=== PATIENT | male | born 1970 | race Caucasian/White ===

== ENCOUNTER 2017-03-21 14:09 | Inpatient (IN) | payer OTHER ==
[2017-03-21 15:09] VITALS: BMI 27.4
--- NOTE | 2017-03-21 16:56 | HP ---
CIWA Score - CIWA Score Nausea/Vomitin-Mild Nausea/No Vomiting Muscle Tremors: 4-Moderate,w/Arms Extend Anxiety: 4-Mod. Anxious/Guarded Agitation: 4-Moderately Restless Paroxysmal Sweats: 1-Minimal Palms Moist Orientation: 3-Disoriented Date>2 days Tacttile Disturbances: 0-None Auditory Disturbances: 0-None Visual Disturbances: 0-None Headache: 1-Very Mild CIWA-Ar Total Score: 18 Admission ROS S - HPI Chief Complaint: WITHDRAWAL SX Allergies/Adverse Reactions: Allergies Allergy/AdvReac Type Severity Reaction Status Date / Time No Known Allergies Allergy Verified 03/21/17 15:43 History of Present Illness: 47 YEARS OLD MALE WITH LONG HISTORY OF ALCOHOL NICOTINE DEPENDENCE, DENIES MEDICAL DENIES MENTAL ILLNESS IS ADMITTED TO DETOX Exam Limitations: No Limitations - Ebola screening Have you traveled outside of the country in the last 21 days: No Have you had contact with anyone from an Ebola affected area: No Have you been sick,other than usual withdrawal symptoms: No Do you have a fever: No - Review of Systems Constitutional: Chills, Changes in sleep, Weight Stable EENT: reports: Other (SORE THROAT) Respiratory: reports: Productive cough (GREENISH) Cardiac: reports: No Symptoms Reported GI: reports: Nausea, Poor Fluid Intake, Abdominal cramping : reports: No Symptoms Reported Musculoskeletal: reports: No Symptoms Reported Integumentary: reports: Dryness, Erythema (FACE - SUN BURN), Lesions (MULTIPLE NECK), Pruritus, Rash Neuro: reports: Seizure (2015), Tremors Endocrine: reports: No Symptoms Reported Hematology: reports: No Symptoms Reported Psychiatric: reports: Judgement Intact, Mood/Affect Appropiate Other Systems: Reviewed and Negative Patient History - Patient Medical History Hx Anemia: No Hx Asthma: No Hx Chronic Obstructive Pulmonary Disease (COPD): No Hx Cancer: No Hx Cardiac Disorders: No Hx Congestive Heart Failure: No Hx Hypertension: No Hx Hypercholesterolemia: No Hx Pacemaker: No HX Cerebrovascular Accident: No Hx Seizures: No Hx Dementia: No Hx Diabetes: No Hx Gastrointestinal Disorders: No Hx Liver Disease: No Hx Genitourinary Disorders: No Hx Sexually Transmitted Disorders: No Hx Renal Disease (ESRD): No Hx Thyroid Disease: No Hx Human Immunodeficiency Virus (HIV): No Hx Hepatitis C: No Hx Depression: No Hx Suicide Attempt: No Hx Bipolar Disorder: No Hx Schizophrenia: No - Patient Surgical History Past Surgical History: Yes Hx Neurologic Surgery: No Hx Cataract Extraction: No Hx Cardiac Surgery: No Hx Lung Surgery: No Hx Breast Surgery: No Hx Breast Biopsy: No Hx Abdominal Surgery: No Hx Appendectomy: No Hx Cholecystectomy: No Hx Genitourinary Surgery: No Hx Orthopedic Surgery: Yes (rt foot toes amputated 2012 [ butler bite ]) Anesthesia Reaction: No - PPD History Previous Implant?: Yes Documented Results: Negative w/proof Implanted On Prior [facility] Admission?: Yes Date: 07/20/15 PPD to be Administered?: Yes - Smoking Cessation Smoking history: Current every day smoker Have you smoked in the past 12 months: Yes Aproximately how many cigarettes per day: 15 Cigars Per Day: 0 Hx Chewing Tobacco Use: No Initiated information on smoking cessation: Yes 'Breaking Loose' booklet given: 03/21/17 - Substance & Tx. History Hx Alcohol Use: Yes Hx Substance Use: No Substance Use Type: Alcohol Hx Substance Use Treatment: Yes (07/17-07/21/15 [facility]) - Substances Abused Alcohol Route: Oral Frequency: Daily Amount used: vodka(1 liter)/beer(4-5 cans 24 oz cans) Age of first use: 12 Date of Last Use: 03/20/17 Family Disease History - Family Disease History Family Disease History: CA: Sister (), Other: Father (), Mother (), Sister Admission Physical Exam BHS - Vital Signs Vital Signs: Vital Signs - 24 hr 03/21/17 15:06 Temperature 97.1 F L Pulse Rate 95 H Respiratory 20 Rate Blood Pressure 150/96 - Physical General Appearance: Yes: Nourished, Appropriately Dressed, Moderate Distress, Tremorous, Irritable, Sweating, Anxious HEENTM: Yes: Hearing grossly Normal, Normal ENT Inspection, Normocephalic, Normal Voice, Lessions (CHEEKS MULTIPLE SKIN ABRASION) Respiratory: Yes: Chest Non-Tender, No Respiratory Distress, No Accessory Muscle Use, Hyperresonant Neck: Yes: Supple, Trachea in good position, Other (MULTIPLE RASHES) Breast: Yes: Breasts Symetrical Cardiology: Yes: Regular Rhythm, S1, S2, Tachycardia Abdominal: Yes: Non Tender, Soft Genitourinary: Yes: Within Normal Limits Back: Yes: Normal Inspection Musculoskeletal: Yes: full range of Motion, Gait Steady Extremities: Yes: Normal Range of Motion, Non-Tender, Tremors, Erythema ( MULTIPLE DRY SKIN SUN BURN) Neurological: Yes: Alert, Motor Strength 5/5, Normal Mood/Affect, Normal Response Integumentary: Yes: Warm, Erythema (RASHES + SUN BURN SUPERFICIAL) Lymphatic: Yes: Within Normal Limits - Diagnostic (1) Nicotine dependence Current Visit: Yes Status: Acute Qualifiers: Nicotine product type: cigarettes Substance use status: in withdrawal Qualified Code(s): F17.213 - Nicotine dependence, cigarettes, with withdrawal (2) Alcohol dependence with uncomplicated withdrawal Current Visit: Yes Status: Acute (3) Dry skin dermatitis Current Visit: Yes Status: Acute (4) Acneiform rash Current Visit: Yes Status: Acute Comment: BACITRACIN OINTMENT (5) Blister Current Visit: Yes Status: Acute Comment: FEET + ABRASION Cleared for Admission S - Detox or Rehab [facility] Level of Care: Medically Managed Detox Regimen/Protocol: Librium S Breath Alcohol Content Breath Alcohol Content: 0 Urine Drug Screen - Results Drug Screen Negative: No Urine Drug Screen Results: BZO-Benzodiazepines
[2017-03-21] MEDS ORDERED: MAGNESIUM HYDROX 2400MG/30ML ORAL SUSPENSION 30 ML CUP PO PRN (17:01)
[2017-03-21] MEDS ORDERED: chlordiazePOXIDE HCL 25 MG CAPSULE PO PRN (17:01)
[2017-03-21] MEDS ORDERED: IBUPROFEN 400 MG TABLET (FP) PO PRN (17:01)
[2017-03-21] MEDS ORDERED: MAG HYDROX/AL HYDROX/SIMETH 30 ML UNIT-DOSE CUP PO PRN (17:01)
[2017-03-21] MEDS ORDERED: LOPERAMIDE HCL 2 MG CAPSULE PO PRN (17:01)
[2017-03-21] MEDS ORDERED: NICOTINE POLACRILEX 4 MG GUM BC PRN (17:01)
[2017-03-21] MEDS ORDERED: hydrOXYzine PAMOATE 50 MG CAPSULE (FP) PO PRN (17:01)
[2017-03-21] MEDS ORDERED: ACETAMINOPHEN 325 MG TABLET (FP) PO PRN (17:01)
[2017-03-21] MEDS ORDERED: guaiFENesin/D-METHORPHAN HB 10 ML UNIT-DOSE CUPS PO PRN (17:01)
[2017-03-21] MEDS ORDERED: MENTHOL/PHENOL 1 EACH UD MM PRN (17:01)
[2017-03-21] MEDS ORDERED: P-EPHED 60MG/TRIPROLIDI 2.5MG TABLET PO PRN (17:01)
[2017-03-21] MEDS ORDERED: MAGNESIUM CITRATE 300 ML BOTTLE PO PRN (17:01)
[2017-03-21] MEDS ORDERED: cloNIDine HCL 0.1 MG TABLET PO PRN (17:03)
[2017-03-21] MEDS ORDERED: BACITRACIN 0.9 GM PACKET TP ONE (17:30)
[2017-03-21] MEDS ORDERED: chlordiazePOXIDE HCL 25 MG CAPSULE PO ONE (17:45)
[2017-03-21] MEDS: CEPHALEXIN MONOHYDRATE 500 MG CAPSULE (UD) PO SCH ×2 (17:54→23:30)
[2017-03-21] MEDS: chlordiazePOXIDE HCL 25 MG CAPSULE PO SCH (22:37)
[2017-03-21] MEDS: diphenhydrAMINE HCL 50 MG CAPSULE PO PRN (22:37)
[2017-03-21] MEDS: THIAMINE HCL 100 MG TABLET (FP) PO SCH (22:37)
[2017-03-21] MEDS: MINERAL OIL/PETROLAT/WATER TOPICAL CREAM 113 GM JAR TP SCH (22:38)
[2017-03-22] MEDS: chlordiazePOXIDE HCL 25 MG CAPSULE PO SCH ×4 (06:12→22:31)
[2017-03-22] MEDS: CEPHALEXIN MONOHYDRATE 500 MG CAPSULE (UD) PO SCH ×4 (06:12→23:32)
[2017-03-22 09:44] LABS: MCH 31.7 pg (25.7-33.7); MEAN PLT VOLUME 8.5 fl (7.5-11.1); PLATELET COUNT 182 K/MM3 (134-434); RDW 16.5 % (11.9-15.9); WHITE BLOOD COUNT 6.7 K/mm3 (4.0-10.0)
[2017-03-22 09:56] LABS: ALBUMIN 3.5 g/dl (3.4-5.0); ANION GAP 6 (8-16); CALCIUM 9.5 mg/dL (8.5-10.1); CO2 32 mmol/L (21-32); GLUCOSE,RANDOM 76 mg/dL (74-106)
[2017-03-22 09:59] LABS: ALK PHOS 129 U/L (45-117); BILIRUBIN,TOTAL 0.7 mg/dL (0.2-1.0); CREATININE 0.9 mg/dL (0.7-1.3); SGOT/AST 32 U/L (15-37); SGPT/ALT 30 U/L (12-78); TOT PROT 7.3 g/dl (6.4-8.2)
[2017-03-22] MEDS: PRENATAL VITAMINS W/ FOLIC ACID TABLET (FP) PO SCH (10:36)
[2017-03-22] MEDS: NICOTINE 21 MG/24 HOURS TOPICAL PATCH TD SCH (10:36)
--- NOTE | 2017-03-22 10:53 | PN ---
[facility] CIWA - CIWA Score Nausea/Vomitin-No Nausea/No Vomiting Muscle Tremors: 4-Moderate,w/Arms Extend Anxiety: 4-Mod. Anxious/Guarded Agitation: 4-Moderately Restless Paroxysmal Sweats: 1-Minimal Palms Moist Orientation: 0-Oriented Tacttile Disturbances: 3-Moderate Itch/Numb/Burn Auditory Disturbances: 0-None Visual Disturbances: 0-None Headache: 0-None Present CIWA-Ar Total Score: 16 BHS Progress Note (SOAP) Subjective: SLIGHT ANXIETY,TREMORS, SWEATS. Objective: 03/22/17 10:52 Vital Signs Temperature 97.6 F 03/22/17 09:34 Pulse Rate 80 03/22/17 09:34 Respiratory Rate 18 03/22/17 09:34 Blood Pressure 126/79 03/22/17 09:34 O2 Sat by Pulse Oximetry (%) Laboratory Last Values WBC 6.7 K/mm3 (4.0-10.0) D 03/22/17 06:00 RBC 4.00 M/mm3 (4.00-5.60) 03/22/17 06:00 Hgb 12.7 GM/dL (11.7-16.9) 03/22/17 06:00 Hct 38.4 % (35.4-49) 03/22/17 06:00 MCV 96.0 fl (80-96) 03/22/17 06:00 MCHC 33.0 g/dl (32.0-35.9) 03/22/17 06:00 RDW 16.5 % (11.9-15.9) H 03/22/17 06:00 Plt Count 182 K/MM3 (134-434) 03/22/17 06:00 MPV 8.5 fl (7.5-11.1) 03/22/17 06:00 Sodium 140 mmol/L (136-145) 03/22/17 06:00 Potassium 3.9 mmol/L (3.5-5.1) 03/22/17 06:00 Chloride 102 mmol/L (98-107) 03/22/17 06:00 Carbon Dioxide 32 mmol/L (21-32) 03/22/17 06:00 Anion Gap 6 (8-16) L 03/22/17 06:00 BUN 10 mg/dL (7-18) D 03/22/17 06:00 Creatinine 0.9 mg/dL (0.7-1.3) 03/22/17 06:00 Creat Clearance w eGFR > 60 (>60) 03/22/17 06:00 Random Glucose 76 mg/dL (74-106) D 03/22/17 06:00 Calcium 9.5 mg/dL (8.5-10.1) 03/22/17 06:00 Total Bilirubin 0.7 mg/dL (0.2-1.0) D 03/22/17 06:00 AST 32 U/L (15-37) D 03/22/17 06:00 ALT 30 U/L (12-78) D 03/22/17 06:00 Alkaline Phosphatase 129 U/L (45-117) H 03/22/17 06:00 Total Protein 7.3 g/dl (6.4-8.2) 03/22/17 06:00 Albumin 3.5 g/dl (3.4-5.0) 03/22/17 06:00 Assessment: 03/22/17 10:52 WITHDRAWAL SX Plan: CONTINUE DETOX
--- NOTE | 2017-03-22 11:05 | EKG ---
Test Reason : Blood Pressure : / mmHG Vent. Rate : 085 BPM Atrial Rate : 085 BPM P-R Int : 136 ms QRS Dur : 080 ms QT Int : 366 ms P-R-T Axes : 067 019 040 degrees QTc Int : 435 ms NORMAL SINUS RHYTHM NORMAL ECG NO PREVIOUS ECGS AVAILABLE Confirmed by JUAN OSORIO, BEE ([id number]) on 03/22/2017 11:05:14 AM Referred By: Confirmed By:BEE MARTINEZ MD
[2017-03-22 13:05] LABS: URINE APPEARANCE CLEAR; URINE BILIRUBIN NEGATIVE (NEGATIVE); URINE BLOOD NEGATIVE (NEGATIVE); URINE COLOR STRAW; URINE GLUCOSE (UA) NEGATIVE (NEGATIVE); URINE KETONE NEGATIVE (NEGATIVE); URINE LEUK ESTERASE NEGATIVE (NEGATIVE); URINE NITRITE NEGATIVE (NEGATIVE); URINE PROTEIN NEGATIVE (NEGATIVE); URINE UROBILINOGEN NEGATIVE E.U./dl (0.2-1.0)
[2017-03-22] MEDS: THIAMINE HCL 100 MG TABLET (FP) PO SCH (22:31)
[2017-03-22] MEDS: MINERAL OIL/PETROLAT/WATER TOPICAL CREAM 113 GM JAR TP SCH (22:32)
[2017-03-23] MEDS: chlordiazePOXIDE HCL 25 MG CAPSULE PO SCH ×3 (05:41→17:13)
[2017-03-23] MEDS: CEPHALEXIN MONOHYDRATE 500 MG CAPSULE (UD) PO SCH ×4 (05:41→23:16)
[2017-03-23] MEDS: PRENATAL VITAMINS W/ FOLIC ACID TABLET (FP) PO SCH (10:34)
[2017-03-23] MEDS: NICOTINE 21 MG/24 HOURS TOPICAL PATCH TD SCH (10:35)
--- NOTE | 2017-03-23 12:59 | PN ---
[facility] CIWA - CIWA Score Nausea/Vomitin-No Nausea/No Vomiting Muscle Tremors: 4-Moderate,w/Arms Extend Anxiety: 4-Mod. Anxious/Guarded Agitation: 4-Moderately Restless Paroxysmal Sweats: 1-Minimal Palms Moist Orientation: 0-Oriented Tacttile Disturbances: 3-Moderate Itch/Numb/Burn Auditory Disturbances: 0-None Visual Disturbances: 0-None Headache: 0-None Present CIWA-Ar Total Score: 16 BHS Progress Note (SOAP) Subjective: ANXIETY,SWEATS,SLIGHT TREMORS. Objective: 03/23/17 12:58 Vital Signs Temperature 97.1 F L 03/23/17 10:32 Pulse Rate 73 03/23/17 10:32 Respiratory Rate 18 03/23/17 10:32 Blood Pressure 111/81 03/23/17 10:32 O2 Sat by Pulse Oximetry (%) Laboratory Last Values WBC 6.7 K/mm3 (4.0-10.0) D 03/22/17 06:00 RBC 4.00 M/mm3 (4.00-5.60) 03/22/17 06:00 Hgb 12.7 GM/dL (11.7-16.9) 03/22/17 06:00 Hct 38.4 % (35.4-49) 03/22/17 06:00 MCV 96.0 fl (80-96) 03/22/17 06:00 MCHC 33.0 g/dl (32.0-35.9) 03/22/17 06:00 RDW 16.5 % (11.9-15.9) H 03/22/17 06:00 Plt Count 182 K/MM3 (134-434) 03/22/17 06:00 MPV 8.5 fl (7.5-11.1) 03/22/17 06:00 Sodium 140 mmol/L (136-145) 03/22/17 06:00 Potassium 3.9 mmol/L (3.5-5.1) 03/22/17 06:00 Chloride 102 mmol/L (98-107) 03/22/17 06:00 Carbon Dioxide 32 mmol/L (21-32) 03/22/17 06:00 Anion Gap 6 (8-16) L 03/22/17 06:00 BUN 10 mg/dL (7-18) D 03/22/17 06:00 Creatinine 0.9 mg/dL (0.7-1.3) 03/22/17 06:00 Creat Clearance w eGFR > 60 (>60) 03/22/17 06:00 Random Glucose 76 mg/dL (74-106) D 03/22/17 06:00 Calcium 9.5 mg/dL (8.5-10.1) 03/22/17 06:00 Total Bilirubin 0.7 mg/dL (0.2-1.0) D 03/22/17 06:00 AST 32 U/L (15-37) D 03/22/17 06:00 ALT 30 U/L (12-78) D 03/22/17 06:00 Alkaline Phosphatase 129 U/L (45-117) H 03/22/17 06:00 Total Protein 7.3 g/dl (6.4-8.2) 03/22/17 06:00 Albumin 3.5 g/dl (3.4-5.0) 03/22/17 06:00 Urine Color Straw 03/22/17 11:40 Urine Appearance Clear 03/22/17 11:40 Urine pH 6.0 (5.0-8.0) 03/22/17 11:40 Ur Specific [place] 1.010 (1.005-1.025) 03/22/17 11:40 Urine Protein Negative (NEGATIVE) 03/22/17 11:40 Urine Glucose (UA) Negative (NEGATIVE) 03/22/17 11:40 Urine Ketones Negative (NEGATIVE) 03/22/17 11:40 Urine Blood Negative (NEGATIVE) 03/22/17 11:40 Urine Nitrite Negative (NEGATIVE) 03/22/17 11:40 Urine Bilirubin Negative (NEGATIVE) 03/22/17 11:40 Urine Urobilinogen Negative E.U./dl (0.2-1.0) 03/22/17 11:40 Ur Leukocyte Esterase Negative (NEGATIVE) 03/22/17 11:40 RPR Titer Nonreactive (NONREACTIVE) 03/22/17 06:00 Hepatitis C Antibody 0.1 s/co ratio (0.0-0.9) 03/21/17 06:00 Assessment: 03/23/17 12:58 WITHDRAWAL SX Plan: CONTINUE DETOX
[2017-03-23] MEDS: THIAMINE HCL 100 MG TABLET (FP) PO SCH (22:32)
[2017-03-23] MEDS: chlordiazePOXIDE 5 MG CAPSULE PO SCH (22:33)
[2017-03-23] MEDS: diphenhydrAMINE HCL 50 MG CAPSULE PO PRN (22:34)
[2017-03-23] MEDS: MINERAL OIL/PETROLAT/WATER TOPICAL CREAM 113 GM JAR TP SCH (22:34)
[2017-03-24] MEDS: chlordiazePOXIDE 5 MG CAPSULE PO SCH ×3 (05:35→16:47)
[2017-03-24] MEDS: CEPHALEXIN MONOHYDRATE 500 MG CAPSULE (UD) PO SCH ×4 (05:36→23:02)
[2017-03-24] MEDS: PRENATAL VITAMINS W/ FOLIC ACID TABLET (FP) PO SCH (10:36)
[2017-03-24] MEDS: NICOTINE 21 MG/24 HOURS TOPICAL PATCH TD SCH (10:36)
[2017-03-24] MEDS: chlordiazePOXIDE HCL 10 MG CAPSULE PO SCH (22:25)
[2017-03-24] MEDS: THIAMINE HCL 100 MG TABLET (FP) PO SCH (22:25)
[2017-03-24] MEDS: MINERAL OIL/PETROLAT/WATER TOPICAL CREAM 113 GM JAR TP SCH (22:25)
[2017-03-24] MEDS: diphenhydrAMINE HCL 50 MG CAPSULE PO PRN (22:26)
[2017-03-25] MEDS: CEPHALEXIN MONOHYDRATE 500 MG CAPSULE (UD) PO SCH ×2 (05:39→11:49)
[2017-03-25] MEDS: chlordiazePOXIDE HCL 10 MG CAPSULE PO SCH ×2 (05:39→10:26)
[2017-03-25 06:27] VITALS: BP 108/74; PULSE 68; TEMP 96.6
[2017-03-25] MEDS: PRENATAL VITAMINS W/ FOLIC ACID TABLET (FP) PO SCH (10:26)
[2017-03-25] MEDS: NICOTINE 21 MG/24 HOURS TOPICAL PATCH TD SCH (10:28)
--- NOTE | 2017-03-25 14:24 | DS ---
[facility] Detox Discharge Summary Admission Date: 03/21/17 Discharge Date: 03/25/17 - History Present History: Alcohol Dependence Additional Comments: ADVISED PATIENT TO FOLLOW-UP WITH [facility] / REHAB MEDICAL PROVIDER AFTER DISCHARGE FROM DETOX FOR GENERAL MEDICAL ASSESSMENT. Pertinent Past History: Dermatitis, Rash, Foot Blisters. - Physical Exam Results Vital Signs: Vital Signs Temperature 96.6 F L 03/25/17 06:27 Pulse Rate 68 03/25/17 06:27 Respiratory Rate 18 03/25/17 06:27 Blood Pressure 108/74 03/25/17 06:27 O2 Sat by Pulse Oximetry (%) Pertinent Admission Physical Exam Findings: WITHDRAWAL SYMPTOMS. Laboratory Tests 03/21/17 03/22/17 03/22/17 06:00 06:00 06:00 WBC 6.7 D RBC 4.00 Hgb 12.7 Hct 38.4 MCV 96.0 MCHC 33.0 RDW 16.5 H Plt Count 182 MPV 8.5 Sodium 140 Potassium 3.9 Chloride 102 Carbon Dioxide 32 Anion Gap 6 L BUN 10 D Creatinine 0.9 Creat Clearance w eGFR > 60 Random Glucose 76 D Calcium 9.5 Total Bilirubin 0.7 D AST 32 D ALT 30 D Alkaline Phosphatase 129 H Total Protein 7.3 Albumin 3.5 Urine Color Urine Appearance Urine pH Ur Specific [place] Urine Protein Urine Glucose (UA) Urine Ketones Urine Blood Urine Nitrite Urine Bilirubin Urine Urobilinogen Ur Leukocyte Esterase RPR Titer Hepatitis C Antibody 0.1 03/22/17 03/22/17 06:00 11:40 WBC RBC Hgb Hct MCV MCHC RDW Plt Count MPV Sodium Potassium Chloride Carbon Dioxide Anion Gap BUN Creatinine Creat Clearance w eGFR Random Glucose Calcium Total Bilirubin AST ALT Alkaline Phosphatase Total Protein Albumin Urine Color Straw Urine Appearance Clear Urine pH 6.0 Ur Specific [place] 1.010 Urine Protein Negative Urine Glucose (UA) Negative Urine Ketones Negative Urine Blood Negative Urine Nitrite Negative Urine Bilirubin Negative Urine Urobilinogen Negative Ur Leukocyte Esterase Negative RPR Titer Nonreactive Hepatitis C Antibody LABS NOTED. - Treatment Hospital Course: Detox Protocol Followed, Detoxed Safely, Responded well, Discharged Condition Good, Rehab Referral Accepted Patient has Accepted a Rehab Referral to: [facility]. - Medication Discharge Medications: Ambulatory Orders NK [No Known Home Medication] 07/17/15 - Diagnosis (1) Acneiform rash Current Visit: Yes Status: Acute (2) Alcohol dependence with uncomplicated withdrawal Current Visit: Yes Status: Acute (3) Blister Current Visit: Yes Status: Acute (4) Dry skin dermatitis Current Visit: Yes Status: Acute (5) Nicotine dependence Current Visit: Yes Status: Chronic Qualifiers: Nicotine product type: cigarettes Substance use status: in withdrawal Qualified Code(s): F17.213 - Nicotine dependence, cigarettes, with withdrawal - AMA Did Patient Leave Against Medical Advice: No
== END 2017-03-25 13:00 | disposition other institution (70) | DRG 775 ==
LOC: YASAS 14:09 → Y3N 16:15
PROVIDERS: ADMIT Internal Medicine; ATTEND Internal Medicine
PROC: HZ2ZZZZ Detoxification Services for Substance Abuse Treatment (ICD-10-PCS; principal; 2017-03-25)
DX: F10.230 Alcohol dependence with withdrawal, uncomplicated (principal); F17.213 Nicotine dependence, cigarettes, with withdrawal; L85.3 Xerosis cutis; R21 Rash and other nonspecific skin eruption; L55.9 Sunburn, unspecified
CPT/HCPCS: 36415; 80053; 81003; 85027; 86593; 86803; 93005; 93010

== ENCOUNTER 2017-03-25 13:16 | Inpatient (IN) | payer OTHER ==
[2017-03-25] MEDS ORDERED: MENTHOL/PHENOL 1 EACH UD MM PRN (13:46)
[2017-03-25] MEDS ORDERED: MAG HYDROX/AL HYDROX/SIMETH 30 ML UNIT-DOSE CUP PO PRN (13:46)
[2017-03-25] MEDS ORDERED: guaiFENesin/D-METHORPHAN HB 10 ML UNIT-DOSE CUPS PO PRN (13:46)
[2017-03-25] MEDS ORDERED: MAGNESIUM CITRATE 300 ML BOTTLE PO PRN (13:46)
[2017-03-25] MEDS ORDERED: MAGNESIUM HYDROX 2400MG/30ML ORAL SUSPENSION 30 ML CUP PO PRN (13:46)
[2017-03-25] MEDS ORDERED: P-EPHED 60MG/TRIPROLIDI 2.5MG TABLET PO PRN (13:46)
[2017-03-25] MEDS ORDERED: hydrOXYzine PAMOATE 50 MG CAPSULE (FP) PO PRN (13:46)
[2017-03-25] MEDS ORDERED: LOPERAMIDE HCL 2 MG CAPSULE PO PRN (13:46)
[2017-03-25] MEDS ORDERED: IBUPROFEN 400 MG TABLET (FP) PO PRN (13:46)
[2017-03-25] MEDS ORDERED: ACETAMINOPHEN 325 MG TABLET (FP) PO PRN (13:46)
--- NOTE | 2017-03-25 13:46 | HP ---
CHASTITY OSORIO Rehab Assess/Revision - Admission History Admitted to Rehab from: [facility] Date of Admission to Rehab: 03/25/17 - Findings Detox History & Physical reviewed: Yes Concur with findings: Yes Comments/Additional Findings: for rehab as protocol
[2017-03-25] MEDS: CEPHALEXIN MONOHYDRATE 500 MG CAPSULE (UD) PO SCH (18:50)
[2017-03-25] MEDS: MINERAL OIL/PETROLAT/WATER TOPICAL CREAM 113 GM JAR TP SCH (22:36)
[2017-03-25] MEDS: THIAMINE HCL 100 MG TABLET (FP) PO SCH (22:36)
[2017-03-25] MEDS: diphenhydrAMINE HCL 50 MG CAPSULE PO PRN (22:36)
[2017-03-26] MEDS: CEPHALEXIN MONOHYDRATE 500 MG CAPSULE (UD) PO SCH ×5 (00:51→23:37)
[2017-03-26] MEDS: PRENATAL VITAMINS W/ FOLIC ACID TABLET (FP) PO SCH (10:06)
[2017-03-26] MEDS: NICOTINE 21 MG/24 HOURS TOPICAL PATCH TD SCH (10:06)
[2017-03-26] MEDS: THIAMINE HCL 100 MG TABLET (FP) PO SCH (21:17)
[2017-03-26] MEDS: diphenhydrAMINE HCL 50 MG CAPSULE PO PRN (21:17)
[2017-03-26] MEDS: MINERAL OIL/PETROLAT/WATER TOPICAL CREAM 113 GM JAR TP SCH (22:14)
[2017-03-27] MEDS: CEPHALEXIN MONOHYDRATE 500 MG CAPSULE (UD) PO SCH (06:06)
[2017-03-27 06:37] VITALS: BP 118/73; PULSE 83; TEMP 97.6
[2017-03-27] MEDS: NICOTINE 21 MG/24 HOURS TOPICAL PATCH TD SCH (09:38)
[2017-03-27] MEDS: PRENATAL VITAMINS W/ FOLIC ACID TABLET (FP) PO SCH (09:38)
--- NOTE | 2017-03-27 14:52 | PN ---
S Progress Note Note: patient signed out AMA prior to be seen by a psychiatrist for admission.
== END 2017-03-27 10:30 | disposition left against medical advice (07) | DRG 770 ==
LOC: YASAS 13:16 → Y5N 13:18
PROVIDERS: ADMIT Psychiatry & Neurology Psychiatry; ATTEND Psychiatry & Neurology Psychiatry
PROC: HZ42ZZZ Group Counseling for Substance Abuse Treatment, Cognitive-Behavioral (ICD-10-PCS; principal; 2017-03-25)
DX: F10.20 Alcohol dependence, uncomplicated (principal); F17.213 Nicotine dependence, cigarettes, with withdrawal; L85.3 Xerosis cutis